=== PATIENT | female | born 1960 | race Caucasian/White ===

== ENCOUNTER 2019-10-29 07:19 | Outpatient (CLI) | payer OTHER, SELFPAY ==
--- NOTE | ~2019-10-29 | MM_ITS ---
EXAMINATION: MM screening [facility] BI w tobi HISTORY: Screening mammogram TECHNIQUE: Craniocaudal and mediolateral oblique 3-D tomosynthesis images were obtained and synthetic 2-D images were generated. CAD analysis was submitted and interpreted. COMPARISON: 10/25/2018, 09/07/2017, 07/18/2016 BREAST PARENCHYMAL COMPOSITION: The breasts are heterogeneously dense, which may obscure small masses . FINDINGS: RIGHT BREAST: An asymmetry is present in the middle/posterior third of the lower breast best apprecia richard 4 cm from the nipple on the mediolateral oblique view (MLO tomosynthesis image 8/51). LEFT BREAST: There is no evidence of suspicious mass, calcification, or architectural distortion to s uggest malignancy. There has been no significant interval change. IMPRESSION: 1. Right breast asymmetry on the mediolateral oblique view. 2. Additional mammographic views and possible breast ultrasound are recommended. BI-RADS Category 0: Incomplete: Needs additional imaging evaluation. Reviewed, dictated and finalized at location A. IMPRESSION: 1. Right breast asymmetry on the mediolateral oblique view. 2. Additional mammographic views and possible breast ultrasound are recommended . BI-RADS Category 0: Incomplete: Needs additional imaging evaluation.
== END 2019-10-29 07:20 | disposition home or self-care (01) ==
LOC: ANHIMG 07:20
PROVIDERS: PCP Internal Medicine; Visit Provider Obstetrics & Gynecology
DX: Z12.31 Encounter for screening mammogram for malignant neoplasm of breast (principal); R92.8 Other abnormal and inconclusive findings on diagnostic imaging of breast
CPT/HCPCS: 77063; 77067

== ENCOUNTER 2019-11-22 12:24 | Outpatient (CLI) | payer OTHER, SELFPAY ==
--- NOTE | ~2019-11-22 | MMUS_ITS ---
EXAMINATION: MM diagnostic mammo unilat RT, US breast RT limited HISTORY: Right breast asymmetry on screening mammogram TECHNIQUE: Additional 3-D tomosynthesis images of the right breast were performed and synthetic 2-D i mages were generated. CAD analysis was submitted and interpreted. High resolution limited right breas t ultrasound was performed. COMPARISON: 10/29/2019, 10/25/2018, 09/07/2017, 02/11/2016 FINDINGS: MAMMOGRAPHIC FINDINGS: No definite asymmetry persists with spot compression of the right breast. There are scattered benign calcifications. A subtle obscured 11 mm mass is seen in the subareolar aspect of the slightly outer b reast. ULTRASOUND: There are multiple circumscribed, hypoechoic, oval and round masses in the lower outer breast at the 7:00, 8:00, and 9:00 locations which do not demonstrate suspicious posterior features or internal vas cularity. In addition, there are two complicated cysts with internal debris adjacent to the nipple wh ich have decreased in size since prior ultrasound examinations. IMPRESSION: 1. Multiple similar appearing right breast masses, most consistent with complicated cysts. No mammogr aphic or sonographic evidence of malignancy. 2. Recommend routine screening mammography in one year. BI-RADS Category 2: Benign finding(s). Reviewed, dictated and finalized at location A. IMPRESSION: 1. Multiple similar appearing right breast masses, most consistent with complic ated cysts. No mammographic or sonographic evidence of malignancy. 2. Recommend routine screening mammography in one year. BI-RADS Category 2: Benign finding(s).
== END 2019-11-22 12:25 | disposition home or self-care (01) ==
LOC: ANHIMG 12:28
PROVIDERS: PCP Internal Medicine; Visit Provider Obstetrics & Gynecology
DX: R92.8 Other abnormal and inconclusive findings on diagnostic imaging of breast (principal)
CPT/HCPCS: 76642; 77065

== ENCOUNTER 2020-12-01 07:17 | Outpatient (CLI) | payer OTHER, SELFPAY ==
--- NOTE | ~2020-12-01 | MM_ITS ---
EXAMINATION: MM screening [facility] BI w tobi HISTORY: Screening TECHNIQUE: Craniocaudal and mediolateral oblique 3-D tomosynthesis images were obtained and synthetic 2-D images were generated. CAD analysis was submitted and interpreted. COMPARISON: Comparison to multiple prior studies sequentially, with oldest reviewed study dated 02/10. BREAST PARENCHYMAL COMPOSITION: The breasts are heterogeneously dense, which may obscure small masses . FINDINGS: There are stable benign-appearing bilateral breast calcifications. There is no evidence of suspicious mass, calcification, or architectural distortion to suggest malignancy in either breast. T here has been no suspicious interval change. IMPRESSION: 1. No mammographic evidence of malignancy. 2. Recommend routine screening mammography in one year. BI-RADS Category 2: Benign finding(s). Reviewed, dictated and finalized at location A.
== END 2020-12-01 07:18 | disposition home or self-care (01) ==
LOC: ANHIMG 07:25
PROVIDERS: PCP Internal Medicine; Visit Provider Obstetrics & Gynecology
DX: Z12.31 Encounter for screening mammogram for malignant neoplasm of breast (principal)
CPT/HCPCS: 77063; 77067

== ENCOUNTER 2022-01-25 07:47 | Outpatient (CLI) | payer OTHER, SELFPAY ==
--- NOTE | ~2022-01-25 | MM_ITS ---
EXAMINATION: MM screening [facility] BI w tobi HISTORY: Screening mammogram TECHNIQUE: Craniocaudal and mediolateral oblique 3-D tomosynthesis images were obtained and synthetic 2-D images were generated. CAD analysis was submitted and interpreted. COMPARISON: 12/01/2020 bilateral screening mammogram 11/22/2019 diagnostic right mammogram and limited right breast ultrasound 10/29/2019, 10/25/2018 bilateral screening mammogram examinations BREAST PARENCHYMAL COMPOSITION: The breasts are heterogeneously dense, which may obscure small masses . FINDINGS: Scattered benign calcifications are noted bilaterally. There is no evidence of suspicious m ass, calcification, or architectural distortion to suggest malignancy in either breast. There has bee n no suspicious interval change. IMPRESSION: 1. No mammographic evidence of malignancy. 2. Recommend routine screening mammography in one year. BI-RADS Category 2: Benign finding(s). Reviewed, dictated and finalized at location A.
== END 2022-01-25 07:48 | disposition home or self-care (01) ==
LOC: ANHIMG 07:48
PROVIDERS: PCP Internal Medicine; Visit Provider Obstetrics & Gynecology
DX: Z12.31 Encounter for screening mammogram for malignant neoplasm of breast (principal)
CPT/HCPCS: 77063; 77067

== ENCOUNTER 2022-04-13 15:07 | Outpatient (CLI) | payer OTHER, SELFPAY ==
--- NOTE | ~2022-04-13 | DEXA_ITS ---
Bone Density Report Name: VIKI VALADEZ Age: 61 Sex: Female Ethnicity: White Date of : 1960 Indication: postmenopausal; screening for osteoporosis; Referring Provider: SHIRLEY ROMAN Study: Bone densitometry was performed. Exam Date: April 13, 2022 Accession number: [id number] Bone Density: Region BMD T-score Z-score Classification AP Spine(L1-L4) 0.914 -1.2 0.2 Osteopenia Femoral Neck (Left) 0.741 -1.0 0.3 Normal Total Hip (Left) 0.934 -0.1 0.9 Normal Femoral Neck (Right) 0.791 -0.5 0.8 Normal Total Hip (Right) 0.929 -0.1 0.8 Normal Total Hip Mean 0.932 -0.1 0.9 Normal World Health Organization criteria for BMD impression classify patients as: Normal (T-score at or above -1.0), Osteopenia (T-score between -1.0 and -2.5), or Osteoporosis (T-score at or below -2.5). 10-year Fracture Risk(1): Major Osteoporotic Fracture 7.0% Hip Fracture 0.4% Reported Risk Factors: [place] (), Neck BMD=0.741, BMI=28.4 (1) FRAX(R) Version 3.08. Fracture probability calculated for an untreated patient. Fracture probability may be lower if the patient has received treatment. Clinical Information Provided by Patient: Patient maximum height was 60.5 Menopause Age: 55 Drinks caffeinated beverages Onset of menses at age 17 Number of children 2 Impression: The patient has low bone mass, based on the Total Spine T-score. The patient has an estimated ten-year risk of hip fracture of 0.4% and an estimated ten-year risk of major fracture of 7%, based on the WHO FRAX algorithm. Discussion: BONE DENSITY IS LOW AT ONE OR MORE SKELETAL SITES. This patient's lowest T-score is low at one or more skeletal sites. It meets the World Health Organization's (WHO) criteria for ?low bone mass? (T-score between -1.0 and -2.5). The patient's 10-year risk of fracture as calculated by FRAX is less than the threshold where pharmacological therapy is recommended by the National Osteoporosis Foundation (NOF). However, all treatment decisions require clinical judgment and consideration of individual patient factors, including patient preferences, comorbidities, previous drug use, risk factors not captured in the FRAX model (e.g., frailty, falls, vitamin D deficiency, increased bone turnover, interval significant decline in bone density) and possible under or overestimation of fracture risk by FRAX. The patient should follow a healthful lifestyle (good nutrition with adequate calcium and vitamin D, and appropriate weight-bearing exercise). Follow-Up: Consider repeating this study in 2 to 3 years to reassess this patient's status, or sooner if there is some new clinical indication. Reported by: [facility] on 04/13/2022 3:24:00 PM. Reviewed, dictated an
== END 2022-04-13 15:08 | disposition home or self-care (01) ==
PROVIDERS: PCP Internal Medicine; Visit Provider Obstetrics & Gynecology
DX: Z78.0 Asymptomatic menopausal state (principal); M85.88 Other specified disorders of bone density and structure, other site
CPT/HCPCS: 77080

== ENCOUNTER 2022-04-21 07:36 | Outpatient (CLI) | payer OTHER, SELFPAY ==
[2022-04-21 09:10] LABS: Vitamin D 25 Hydroxy 37.8 ng/mL
== END 2022-04-21 07:37 | disposition home or self-care (01) ==
LOC: ANHLAB 07:38
PROVIDERS: PCP Internal Medicine; Visit Provider Obstetrics & Gynecology
DX: M85.80 Other specified disorders of bone density and structure, unspecified site (principal)
CPT/HCPCS: 36415; 82306

== ENCOUNTER 2023-04-20 08:11 | Outpatient (CLI) | payer OTHER, SELFPAY ==
--- NOTE | ~2023-04-20 | MM_ITS ---
EXAMINATION: MM screening [facility] BI w tobi HISTORY: Screening mammogram TECHNIQUE: Craniocaudal and mediolateral oblique 3-D tomosynthesis images were obtained and synthetic 2-D images were generated. CAD analysis was submitted and interpreted. COMPARISON: 01/25/2022, 12/01/2020, 11/22/2019, 10/29/2019 BREAST PARENCHYMAL COMPOSITION: The breasts are heterogeneously dense, which may obscure small masses . FINDINGS: A stable mass in the anterior/middle third of the right breast is consistent with a benign finding. No suspicious mass, calcification, or architectural distortion are identified in either guru st to suggest malignancy. There has been no suspicious interval change. IMPRESSION: 1. No mammographic evidence of malignancy. 2. Recommend routine screening mammography in one year. BI-RADS Category 2: Benign finding(s). Reviewed, dictated and finalized at location A. 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
== END 2023-04-20 08:12 | disposition home or self-care (01) ==
PROVIDERS: PCP Nurse Practitioner Family; Visit Provider Obstetrics & Gynecology
DX: Z12.31 Encounter for screening mammogram for malignant neoplasm of breast (principal)
CPT/HCPCS: 77063; 77067

== ENCOUNTER 2023-05-19 08:02 | Emergency (ER) | payer OTHER, SELFPAY ==
--- NOTE | ~2023-05-19 | XR_ITS ---
Right foot Technique: AP, oblique, and lateral views were obtained. Clinical History: Pain Findings: No acute fracture or dislocation is seen. Osseous alignment is anatomic. Joint spaces are p reserved without erosive or degenerative change. Soft tissues are unremarkable. Impression: Unremarkable right foot radiographs. Reviewed, dictated and finalized at location . 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
--- NOTE | ~2023-05-19 | XR_ITS ---
Right ankle Technique: AP, oblique, and lateral views were obtained. Clinical History: Pain Findings: No acute fracture or dislocation is seen. Osseous alignment is anatomic. Ankle mortise and other visualized joint spaces are preserved. Soft tissues are otherwise unremarkable. Impression: Unremarkable right ankle. Reviewed, dictated and finalized at location . 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
--- NOTE | 2023-05-19 08:09 | ED.LOWEXIN ---
HPI - Extremity Injury (Lower) General Chief Complaint: Extremity Injury, Lower Stated Complaint: lower extremity injury Time Seen by Provider: 05/19/23 08:14 Source: patient Mode of arrival: ambulatory Limitations: no limitations History of Present Illness HPI Narrative: Mayuri is a 63-year-old female patient presenting to the clinic today with complaints of right foot and ankle pain. She reports she was walking on a on some steps this morning and inverted her foot causing pain to the lateral aspect of the foot that is radiating up into the ankle. Related Data Allergies Allergy/AdvReac Type Severity Reaction Status Date / Time sulfamethoxazole Allergy Mild Rash Verified 05/19/23 08:18 [From ] trimethoprim [From ] Allergy Mild Rash Verified 05/19/23 08:18 Review of Systems Review of Systems: Pertinent positives per HPI. Patient denies any fever, chills, rash, headache, visual changes, dizziness, cough, shortness of breath, chest pain, palpitations, nausea, vomiting, diarrhea, constipation, abdominal pain, or any urinary issues. [facility] Past Medical History Medical History Episode of gagging Memory loss, short term Syncope and collapse Surgical History Surgical History Hx of elbow surgery S/P endometrial ablation Total knee replacement status Family History Family History Father Family history of malignant neoplasm of thyroid, Onset Age: 77 Patient's father is Family history of malignant neoplasm Mother Family history of cardiac disorder Family history of Parkinson's disease Social History Social History Smoking status: Never smoker Second hand tobacco smoke exposure: No Alcohol intake: current Lack of Transportation: No Lack of Food: Never True Current Housing: I Have Housing Concerned About Future Housing: No Difficulty Paying Gas/Electric Bills: No Difficulty Paying for Meds: No Currently Unemployed: No Education: Bachelor's Degree Difficulty w/ Childcare or Family Care: No Comments At the time of my signature, I reviewed and agree with the nursing past medical, surgical, social, and family history. There is no relevant family history pertinent to the patient complaint. Exam Narrative: General: Well-developed, well nourished, in no apparent distress Head: Normocephalic, atraumatic. Cardio: Regular rate and rhythm, s1 and s2 normal, no murmur appreciated. Resp: Clear to auscultation bilaterally, no rhonchi, rales, wheezing or rubs. Musculoskeletal: No deformity, tender to palpation over the right lateral foot and ankle, pain with valgus varus testing of the foot, pain with dorsal flexion of the foot,, grossly normal range of motion, muscle strength strong and equal, peripheral pulse strong, no edema, no cyanosis, normal gait and station Course Course Emergency Course: Portions of this record may have been created with voice recognition software. Level of Care: Express Care Visit Vital Signs Vital signs: Vital signs reviewed MDM - Extremity Injury (Lower) MDM Narrative Medical decision making narrative: At the time of visit patient is resting comfortably on the exam table. Patient appears to be nontoxic. X-rays of the right foot and ankle were performed and were negative for any sign of fracture or malalignment.. Supportive measures were discussed with the patient and they voiced understanding discharge instructions and agrees to treatment plan. Return precautions reviewed Differential Diagnosis Differential diagnosis: Likely ankle sprain and strain and other (Foot fracture, foot sprain) Imaging Data Radiologist's impression: ITS Impressions Ankle X-Ray 05/19/23 08:31 Impression: Unremark
[2023-05-19 08:16] VITALS: BP 124/65; PULSE 96; RESP 16; TEMP 36.2; O2SAT 98
[2023-05-19 08:19] VITALS: BP 124/65; PULSE 96; RESP 98; TEMP 36.2; O2SAT 98
== END 2023-05-19 08:50 | disposition home or self-care (01) ==
PROVIDERS: Emergency Provider Nurse Practitioner Family; PCP Nurse Practitioner Family
DX: S93.411A Sprain of calcaneofibular ligament of right ankle, initial encounter (principal); S93.601A Unspecified sprain of right foot, initial encounter; X50.0XXA Overexertion from strenuous movement or load, initial encounter
CPT/HCPCS: 73610; 73630; 99213; G0463

== ENCOUNTER 2023-07-06 16:23 | Outpatient (CLI) | payer OTHER, SELFPAY ==
--- NOTE | ~2023-07-06 | US_ITS ---
EXAMINATION: US transvaginal DATE: 07/06/2023 17:42 INDICATION: Secondary dysmenorrhea. Back pain. TECHNIQUE: Multiple transabdominal and transvaginal sonographic images of the pelvis were obtained. COMPARISON: Ultrasound 07/16/2015 FINDINGS: TRANSABDOMINAL ULTRASOUND: The uterus measures 6.7 x 2.5 x 3.7 cm. There is no free fluid in the pelvis. TRANSVAGINAL ULTRASOUND: The endometrial complex measures 1 mm in thickness. There are hypoechoic masses in the cervix measuri ng up to 14 mm, likely hemorrhagic nabothian cysts. There is a 2.0 cm intramural fibroid. The right o vary measures 3.2 x 1.8 x 2.1 cm. There is a 1.9 cm cyst in right ovary, likely benign. The left ovar y is not visualized. IMPRESSION: 1. Uterine fibroid. 2. Hypoechoic masses in the cervix, likely hemorrhagic nabothian cysts. Reviewed, dictated and finalized at location E. 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
== END 2023-07-06 16:24 | disposition home or self-care (01) ==
PROVIDERS: PCP Nurse Practitioner Family; Visit Provider Obstetrics & Gynecology Gynecology
DX: N94.5 Secondary dysmenorrhea (principal); D25.1 Intramural leiomyoma of uterus; D26.0 Other benign neoplasm of cervix uteri; R11.0 Nausea
CPT/HCPCS: 76830

== ENCOUNTER 2023-12-19 16:03 | Outpatient (CLI) | payer OTHER, SELFPAY | END 2023-12-19 16:04 | disposition home or self-care (01) | LOC: ANHLAB 16:06 | PROVIDERS: PCP Nurse Practitioner Family; Visit Provider Obstetrics & Gynecology | DX: R10.2 Pelvic and perineal pain (principal); G89.29 Other chronic pain | CPT/HCPCS: 36415; 86850; 86900; 86901 ==

== ENCOUNTER 2023-12-23 08:37 | Observation (INO) | payer OTHER, SELFPAY ==
[2023-12-19 15:42] VITALS: BMI 29.8
--- NOTE | 2023-12-19 15:52 | PC.NURSE ---
Report to the Outpatient Waiting Room, entrance under the green pavilion located off [facility], at time _0600_ on date _[id number]_. Planned Procedure Time: _0730_. Time changes happen often and if your time is changed the preop area will call you the afternoon before. - You and your visitor will be asked to self-screen and do not enter if you have any COVID symptoms. - A mask is optional within the hospital at this time. Patients may have clear liquids (water, carbonated beverages, clear teas, apple juice) until 3 hours prior to surgery with a maximum of 20 ounces. - No food from midnight until time of surgery Take the following medications with a SIP of water the morning of surgery: ____Escitalopram DO NOT STOP ANY OF YOUR OTHER PRESCRIPTION MEDICATIONS PRIOR TO SURGERY ?EXCEPT THE FOLLOWING Medications to discontinue per physician All vitamins and supplements Date to take last dose____Stop now until after surgery. Please no make-up, nail greek, hairspray, perfume, deodorant, or body powder the day of surgery. No jewelry (including any body piercings) or valuables the day of surgery, leave them at home. Please take a shower or bath the night before, or the morning of, surgery with an antibacterial soap. Wear comfortable, loose fitting clothing. - Jewelry must be removed prior to entering the operating room. Rings and piercings that are not removed may be cut off. - The hospital will not accept responsibility for valuables. - Please leave all valuables, including medications, at home the day of surgery. If you are going home after surgery, a licensed cement truck driver must drive you home. - NO public transportation without another adult if you receive anesthesia. - We recommend that an adult stay with you for 24 hours following discharge. - We also recommend that you do not drive, make important decision, drink alcoholic beverages, or take any drugs that were not prescribed by your health care provider for at least 24 hours after your discharge time. Follow any additional instructions given to you from your surgeon. If you or anyone in your household have experienced Covid symptoms in the past week, please notify your surgeon or the nurse liaison at the phone number below for possible testing. Telephone instructions given to __Violete___and asked if any additional questions and then verbalized understanding. Patient advised to call surgeon office or pre surgery nurse liaison [phone] if any additional questions.
--- NOTE | 2023-12-21 14:16 | WPDANESEPPF ---
Anes - Initial Pre Proc Eval Procedure: Operation Date: 12/22/23 07:30 Proposed Procedures p Robotic Assisted Laparoscopic Total Vaginal Hysterectomy - Scott Tejeda MD Date/Time: 12/21/23 14:16 Surgeon: Scott Tejeda MD Pre Op Diagnosis: Chronic Pelvic Pain Patient Data Age: 63 Gender: F Height: 1.54 m Weight: 70.5 kg Allergies Allergy/AdvReac Type Severity Reaction Status Date / Time sulfamethoxazole Allergy Mild Rash Verified 12/22/23 06:43 [From ] trimethoprim [From ] Allergy Mild Rash Verified 12/22/23 06:43 morphine AdvReac Unknown Hypotension Verified 12/22/23 06:43 Home Medications Medication Instructions Recorded Confirmed Type escitalopram oxalate 5 mg tablet 5 mg PO DAILY #90 tabs 07/05/23 12/22/23 Rx (Lexapro) DHEA sr 1 tab-cap BYMOUTH DAILY 12/13/23 12/22/23 History cholecalciferol (vitamin D3) 125 125 mcg PO DAILY 12/13/23 12/22/23 History mcg (5,000 unit) tablet (Vitamin D3) coenzyme Q10 100 mg capsule (Co 100 mg PO DAILY 12/13/23 12/22/23 History Q-10) estrodiol 2.25 mg BYMOUTH DAILY 12/13/23 12/19/23 History mupirocin 2 % topical ointment 1 applic topical BID #15 grams 12/13/23 12/19/23 Rx progesterone 1 tab-cap BYMOUTH DAILY 12/13/23 12/22/23 History testosterone versase 1 applic topical DAILY 12/13/23 12/19/23 History thyroid 1 tab-cap BYMOUTH DAILY 12/13/23 12/22/23 History vitamin adk 1 tab-cap BYMOUTH DAILY 12/13/23 12/22/23 History scopolamine base 1 mg over 3 days 1 patch transdermal ONCE PRN 12/19/23 Rx transdermal patch motion sickness #1 ea Patient hx anesthesia problems: post op nausea/vomiting Family hx anesthesia problems: none Results Review: All pre-operative results and documents have been reviewed as part of the pre-operative evaluation. [facility] Past Medical History Medical History Episode of gagging Memory loss, short term Syncope and collapse Surgical History Surgical History Hx of elbow surgery S/P endometrial ablation Total knee replacement status Family History Family History Father Family history of malignant neoplasm of thyroid, Onset Age: 77 Patient's father is Family history of malignant neoplasm Mother Family history of cardiac disorder Family history of Parkinson's disease Social History Social History Smoking status: Never smoker Second hand tobacco smoke exposure: No Alcohol intake: current Drinks per week: 3 Substance use: never Do You Feel Safe in your Home?: Yes Lack of Transportation: No Lack of Food: Never True Current Housing: I Have Housing Concerned About Future Housing: No Difficulty Paying Gas/Electric Bills: No Difficulty Paying for Meds: No Currently Unemployed: No Education: Bachelor's Degree Difficulty w/ Childcare or Family Care: No Living arrangements: with family Occupation/Education: occupation Gender identity (if verbalized by the patient): Female Sexual Orientation (if Verbalized by the Patient): Straight or Heterosexual Spiritual care concerns: No Agree to blood products: Yes Anes - Eval Final PreProcedure Day of Procedure 12/21/23 14:16 Patient weight: normal Heart: regular rate and rhythm Lungs: clear to auscultation Airway: Mallampati scale class II Neurological: alert and oriented Last oral intake: >/= 8 hours ASA classification: II Emergent: no Anesthetic plan: proceed Anesthesia type and monitoring: general ETT and standard monitoring Results Review: All pre-operative results and documents have been reviewed as part of the pre-operative evaluation. Informed Consent: The patient's anesthetic plan and its attendant risks and benefits were discussed with the patient/family/POA. Qu
[2023-12-22] VITALS (17 sets, daily range): BP systolic 81–114; BP diastolic 42–70; PULSE 16–124; RESP 10–94; TEMP 36.2–36.8; O2SAT 92–100; BMI 28.7
[2023-12-22] MEDS: LACTATED RINGERS 1,000 ML 30 ML IV CONT ×2 (06:35→09:42)
[2023-12-22] MEDS: KETOROLAC 15 MG/ML VIAL (*BKC) IV PUSH (06:47)
[2023-12-22] MEDS: ACETAMINOPHEN 500 MG TABLET 1000 MG PO (06:47)
--- NOTE | 2023-12-22 07:07 | WPDHPUPDATE1 ---
History and Physical Update Update Date/Time: 12/22/23 07:07 History and Physical has been reviewed, including an updated exam of the patient. There are NO changes in the patient's condition. Risks, benefits, and alternatives have been discussed and questions answered. Patient agrees to proceed with procedure.
[2023-12-22] MEDS: ceFAZolin 2 GM/D5W 50 ML 2 GM/50 ML BAG IVPB (07:35)
[2023-12-22] MEDS: BUPivacaine HCL 0.5% 10 ML AMP 20 ML INFILTRATE (08:33)
--- NOTE | 2023-12-22 10:11 | P.OPB_ITS ---
Procedure Note - Brief Procedure Note - Brief Date of procedure: 12/22/23 Chronic Pelvic Pain Post-op diagnosis: Same Procedure performed: laparoscopic robotic assisted vaginal hysterectomy with bilateral salpingo- oophorectomy Surgeon: Scott Tejeda MD Anesthesia: GETA Findings: Normal uterus and ovaries and fallopian tubes, uterus with fibroid. Estimated blood loss (mL): 20 Drains: No Packing: No Pathology: Yes (uterus with cervix and right and left fallopian tubes and ovaries.) Complications: No immediate complications Disposition: PACU
--- NOTE | 2023-12-22 10:34 | SUR.PHASEI ---
1030: Simple mask removed.
--- NOTE | 2023-12-22 11:10 | ADMGEN ---
This patient, Mayuri Dave, was admitted to [facility] Surg Room 309-01 @ 1110. Patient/family oriented to hospital policies and general routines including ID bracelet, bed and alarms, visiting hours, pain management, procedures, bathroom and other care routines, personal items, smoking policy, room service/diet, and visiting hours. Information on how to activate the Rapid Response Team has been discussed. Patient/Family are encouraged to report perceived risks to care and to ask questions if they do not understand what they are told or what they should do.
[2023-12-22] MEDS: DEXTROSE 5%/0.45% SOD CHL 1,000 ML 125 ML IV CONT (13:16)
[2023-12-22] MEDS: SIMETHICONE 80 MG TAB.CHEW PO ×2 (13:16→16:52)
[2023-12-22] MEDS: HYDROcodone/acetaminophen (*CRX) 10-325 MG TABLET 1 TAB PO (14:11)
--- NOTE | 2023-12-22 14:16 | W.PM.PROC2 ---
Procedure Note - Detailed Date of Procedure 12/22/23 Pre-op Diagnosis Chronic Pelvic Pain Post-op Diagnosis Same Procedure Performed Laparoscopic robotic assisted total vaginal hysterectomy and bilateral salpingo-oophorectomy. Surgeon Scott Tejeda MD Top Knitter Dariusz Medina Anesthesia General Indications Patient with cyclic chronic pelvic pain desires definitive treatment. Findings Uterus normal size, ovaries atretic, possible intramural fibroid on right lateral uterus. Description of Procedure After informed consent was obtained she was taken to the operating room and general endotracheal anesthesia was administered. She was placed in low lithotomy position. An exam under anesthesia was performed. She was and prepped and draped in sterile fashion. [place] catheter placed in bladder. Attention was turned to the vagina speculum was inserted. Single-tooth tenaculum placed on anterior lip of the cervix the uterus sounded to 7 cm. The cervix was dilated to a 8 Mejia dilator. A size 6 uterine manipulator was inserted and secured. A size 3.0 colp cup was secured in the vagina. Then attention was turned to the abdomen with new sterile gloves. .5% marcaine injected subcutaneously. An incision was made horizontal 2 cm above the umbilicus. Veress needle inserted and confirmation into abdomen with normal flow of saline. Pneumoperitoneum obtained to 15mmhg. The 8mm robotic port was inserted using laparoscopy. Confirmation into abdomen obtained. She was placed in trendelenburg position. Attention was turned to right side of abdomen. A small incision was made approximately 6 cm lateral to the port on the left side of the port. A size 8mm robotic port was inserted under laparoscopic visualization into the abdomen on the left side. Attention was turned to the right side and 8mm port was inserted and superior and medial to this nurse assistant port inserted, both under laparoscopic visualization. .5% Marcaine injected subcutaneously before incisions. Robotic arms were secured. Attention was turned to surgery console. The right round ligament was ligated with vessel sealer. The anterior leaf of broad ligament dissected anteriorly. The right side of the bladder was dissected from the lower uterine segment and upper cervix. The right infundibular pelvicligament was ligated with the vessel sealer. The a posterior leaf of the broad ligament was further dissected. The ascending uterine vessels on the right were cauterized. The uterine vessels were ligated. Attention was turned to the left round ligament which was ligated and the anterior leaf of the broad ligament was dissected anteriorly. The rest of the vesicouterine peritoneum was dissected off of the uterus. Once the bladder was dissected below the colp cup then the posterior leaf of the broad ligament was further dissected. The left infundibular pelvic ligament was ligated. The ascending uterine vessels were ligated. The uterine arteries were ligated. The cardinal ligaments were ligated. This was done on both sides. An incision was made anterior colpotomy incision was made and this was carried around until the cervix was removed from the vagina. The uterus and cervix were removed through the vagina. The vaginal cuff was closed in a running fashion with 0 V lock suture x 2. Hemostasis was noted. The pelvis was irrigated. Hemostasis noted. Surgicil was applied in the pelvis. The patient was taken out of Trendelenburg position. The pneumoperitoneum was released and the ports were removed. Hemostasis was obtained at skin incisions. The skin incisions were closed with 4 O Vicryl and skin glue. The patient was extubated in operating room. The sponge count was correct x2. Patient tolerated procedure well and was taken to recovery in stable condition. Estimated Blood Loss 20 Drains No Packing No Pathology Yes (uterus with cervix and right and left fallopian tube) Complications No immediate complications Con
[2023-12-22] MEDS: SENNA/DOCUSATE SODIUM TABLET 2 TAB PO (21:01)
[2023-12-22] MEDS: HYDROcodone/acetaminophen (*CRX) 5-325 MG TABLET 1 TAB PO (21:01)
[2023-12-23 00:17] VITALS: BP 112/50; PULSE 70; RESP 14; TEMP 36; O2SAT 96
[2023-12-23] MEDS: HYDROcodone/acetaminophen (*CRX) 5-325 MG TABLET 1 TAB PO ×2 (04:09→10:23)
[2023-12-23 05:25] VITALS: BP 112/79; PULSE 75; RESP 14; TEMP 36.4; O2SAT 95
[2023-12-23 05:37] VITALS: BP 112/79; PULSE 75; RESP 14; TEMP 36.4; O2SAT 95
[2023-12-23] MEDS: SIMETHICONE 80 MG TAB.CHEW PO (07:54)
[2023-12-23] MEDS: ESCITALOPRAM OXALATE 5 MG TABLET PO (07:54)
--- NOTE | 2023-12-23 08:36 | PM.GYNPNOP ---
WHEEL BUFFER - A/P Assessment and plan (1) Status post hysterectomy: Code(s): Z90.710 - Acquired absence of both cervix and uterus Status: Acute Postoperative Procedures: Procedures Operation Date: 12/22/23 07:30 Actual Procedure Side Surgeon p Robotic Assisted Laparoscopic Total Vaginal Hysterectomy, Bilateral Salpingo-oophorectomy Bilateral Scott Tejeda MD Postoperative day: 1 Postoperative status: doing well Postoperative plan: routine post-op care and discharge Time Spent With Patient Time: Total time spent is greater than 50% in coordination of care (as documented) at patient's floor/unit and/or counseling patient: Time with patient: less than 15 minutes WHEEL BUFFER- PN:Subj Post-Op Subjective Date/time seen: 12/23/23 08:07 Interval history: POD#1 Mayuri reports doing well today. No issues overnight. Her pain is controlled with PO meds. She has tolerated regular diet. She denies any vaginal bleeding. She has voided. She has passed flatus. She has ambulated and denies any symptoms of anemia. Review of Systems Review of Systems: All systems reviewed & are unremarkable except as noted in HPI and below (HPI) Constitutional: Constitutional: Denies chills, Denies fever(s) and Denies headache(s) Eyes: Eyes: Denies change in vision ENT: Denies dizziness and Denies headache(s) Cardiovascular: Cardiovascular: Denies chest pain and Denies rapid heart rate Respiratory: Respiratory: Denies cough Genitourinary: Genitourinary: Denies abnormal vaginal bleeding Neurologic: Denies dizziness and Denies headache(s) Exam Const: General: cooperative, healthy appearing, comfortable and no acute distress Orientation/consciousness: patient oriented x3 Resp: Effort & Inspection: normal respiratory effort Auscultation: clear to auscultation bilaterally Cardio: Rate: regular rate GI: Inspection: normal to inspection and incision ( LSC incisions c/d/i) GI Palp: Yes abdominal tenderness (appropriate) and Yes Soft to palpation Auscultation: normal bowel sounds : Other: normal bleeding on pad Skin: General skin exam: normal color Neuro: General: patient oriented x3 Psych: Appearance: grossly normal Affect: normal affect Attitude: cooperative WHEEL BUFFER - PN: Obj Data Vital Signs Vital Signs: Vital Signs - 24 hr 12/22/23 06:00 12/22/23 09:42 12/22/23 09:55 Temperature 98.2 F 97.2 F L Pulse Rate 83 82 89 Respiratory Rate 16 10 L 14 Blood Pressure 103/63 90/42 L 101/53 L Pulse Oximetry 97 100 93 Oxygen Delivery Room Air Simple Face Mask Simple Face Mask Oxygen Flow Rate 12 12 12/22/23 10:10 12/22/23 10:23 12/22/23 10:25 Temperature Pulse Rate 83 124 H 108 H Respiratory Rate 12 16 16 Blood Pressure 93/56 L 101/62 111/65 Pulse Oximetry 100 100 100 Oxygen Delivery Simple Face Mask Simple Face Mask Simple Face Mask Oxygen Flow Rate 12 12 12 12/22/23 10:40 12/22/23 10:55 12/22/23 11:09 Temperature 98.0 F Pulse Rate 104 H 96 111 H Respiratory Rate 13 12 14 Blood Pressure 103/70 110/59 L 103/68 Pulse Oximetry 92 95 97 Oxygen Delivery Room Air Nasal Cannula Nasal Cannula Oxygen Flow Rate 2 2 12/22/23 11:36 12/22/23 11:51 12/22/23 12:21 Temperature 97.4 F L 97.4 F L 97.4 F L Pulse Rate 94 91 95 Respiratory Rate 16 16 16 Blood Pressure 114/57 L 103/57 L 102/54 L Pulse Oximetry 95 97 98 Oxygen Delivery Oxygen Flow Rate 12/22/23 11:30 12/22/23 14:00 12/22/23 13:21 Temperature 97.5 F L 97.5 F L Pulse Rate 93 96 Respiratory Rate 16 16 Blood Pressure 102/54 L 110/60 Pulse Oximetry 95 98 98 Oxygen Delivery Nasal Cannula Oxygen Flow Rate 2 12/22/23 17:57 Temperature 97.9 F Pulse Rate 78 Respiratory Rate 16 Blood Pressure 81/46 L Pulse Oximetry 98 Oxygen Delivery Oxygen Flow Rate Intake/Output Intake/Output: Intake & Output 12/19/23 12/20/23 12/21/23 12/22/23 23:59 23:59 23:59 23:59 Intake Total 1310 Output Total 2180 Balance
[2023-12-23 09:21] VITALS: BP 110/70; PULSE 65; RESP 20; TEMP 36.3; O2SAT 96
--- NOTE | 2023-12-23 10:36 | PM.DS ---
DS: Admitting Diagnosis Discharge Date 12/23/23 <Scott Tejeda MD - Last Filed: 01/12/24 12:42> Admitting Diagnosis Chronic pelvic pain <Scott Tejeda MD - Last Filed: 01/12/24 12:42> DS: Discharge Diagnosis Discharge Diagnosis (1) Status post hysterectomy: Code(s): Z90.710 - Acquired absence of both cervix and uterus <Scott Tejeda MD - Last Filed: 01/12/24 12:42> Status: Acute <Scott Tejeda MD - Last Filed: 01/12/24 12:42> DS: Summary Hospital Course Reason for hospitalization: Hysterectomy <Scott Tejeda MD - Last Filed: 01/12/24 12:42> Hospital Course: She was admitted hysterectomy. She had an uncomplicated hysterectomy/ BSO. She did well post op and was discharged to home on post op day 1. <Scott Tejeda MD - Last Filed: 01/12/24 12:42> Status at Discharge Functional status at discharge: independent ambulation <Scott Tejeda MD - Last Filed: 01/12/24 12:42> Overall status at discharge: patient is progressing back to baseline <Maria Alejandra Arango MD - Last Filed: 12/23/23 10:36> Time Spent with Patient Time attestation: Total time spent providing and/or coordinating discharge services: <Scott Tejeda MD - Last Filed: 01/12/24 12:42> Time spent: Less than 30 minutes <Maria Alejandra Arango MD - Last Filed: 12/23/23 10:36> Exam Const: General: cooperative, healthy appearing, comfortable and no acute distress <Maria Alejandra Arango MD - Last Filed: 12/23/23 10:36> Orientation/consciousness: patient oriented x3 <Maria Alejandra Arango MD - Last Filed: 12/23/23 10:36> Resp: Effort & Inspection: normal respiratory effort <Maria Alejandra Arango MD - Last Filed: 12/23/23 10:36> Auscultation: clear to auscultation bilaterally <Maria Alejandra Arango MD - Last Filed: 12/23/23 10:36> Cardio: Rate: regular rate <Maria Alejandra Arango MD - Last Filed: 12/23/23 10:36> GI: Inspection: normal to inspection and incision ( LSC incisions c/d/i) <Maria Alejandra Arango MD - Last Filed: 12/23/23 10:36> GI Palp: Yes abdominal tenderness (appropriate) and Yes Soft to palpation <Maria Alejandra Arango MD - Last Filed: 12/23/23 10:36> Auscultation: normal bowel sounds <Maria Alejandra Arango MD - Last Filed: 12/23/23 10:36> Skin: General skin exam: normal color <Maria Alejandra Arango MD - Last Filed: 12/23/23 10:36> Neuro: General: patient oriented x3 <Maria Alejandra Arango MD - Last Filed: 12/23/23 10:36> Psych: Appearance: grossly normal <Maria Alejandra Arango MD - Last Filed: 12/23/23 10:36> Affect: normal affect <Maria Alejandra Arango MD - Last Filed: 12/23/23 10:36> Attitude: cooperative <Maria Alejandra Arango MD - Last Filed: 12/23/23 10:36> DS: Data Data Completed and Pending Pending studies at discharge: Pending at discharge 12/22/23 09:00 Surgical [PTH] Routine <Scott Tejeda MD - Last Filed: 01/12/24 12:42> Discharge Plan Discharge Attending physician on discharge: Maria Alejandra Arango <Scott Tejeda MD - Last Filed: 01/12/24 12:42> Maria Alejandra Arango <Maria Alejandra Arango MD - Last Filed: 12/23/23 10:36> Consulting providers: Maria Alejandra Arango; Edwar Cluod <Scott Tejeda MD - Last Filed: 01/12/24 12:42> Discharging Clinician: Scott Tejeda <Scott Tejeda MD - Last Filed: 01/12/24 12:42> Scott Tejedaen N. Nba, MD - Last Filed: 12/23/23 10:36> Patient Disposition: Home, Self-Care <Scott Tejeda MD - Last Filed: 01/12/24 12:42> Activity: may shower and pelvic rest <Scott Tejeda MD - Last Filed: 01/12/24 12:42> may shower and pelvic rest <Maria Alejandra Arango MD - Last Filed: 12/23/23 10:36> Diet: regular <Scott Tejeda MD - Last Filed: 01/12/24 12:42> regular <Maria Alejandra Arango MD - Last Filed: 12/23/23 10:36> Discharge Instructions: - Nothing in the vagina for 6-8 weeks -- showers only. - No heavy l
== END 2023-12-23 10:43 | disposition home or self-care (01) ==
LOC: ANHSURGERY 08:45 → ANH3MEDSUR 08:45
PROVIDERS: Admitting Provider Obstetrics & Gynecology; PCP Nurse Practitioner Family; Visit Provider Obstetrics & Gynecology
PROC: (CPT 58552; principal; 2023-12-22 07:30)
DX: D25.2 Subserosal leiomyoma of uterus (principal); N72 Inflammatory disease of cervix uteri; N87.9 Dysplasia of cervix uteri, unspecified; N83.8 Other noninflammatory disorders of ovary, fallopian tube and broad ligament; N83.202 Unspecified ovarian cyst, left side; N83.201 Unspecified ovarian cyst, right side
CPT/HCPCS: 58552; S2900; 88307; A9270; G0378; J0690; J1100; J1170; J1200; J1885; J2250; J2405; J2704; J3010; J7030; J7120

== ENCOUNTER 2024-07-05 12:20 | Outpatient (CLI) | payer OTHER, SELFPAY ==
--- NOTE | ~2024-07-05 | MM_ITS ---
EXAMINATION: MM screening saray BI w tobi HISTORY: Screening TECHNIQUE: Craniocaudal and mediolateral oblique 3-D tomosynthesis images were obtained and synthetic 2-D images were generated. CAD analysis was submitted and interpreted. COMPARISON: Comparison to multiple prior studies sequentially, with oldest reviewed study dated 10/25. BREAST PARENCHYMAL COMPOSITION: Dense: The breasts are heterogeneously dense, which may obscure small masses FINDINGS: There is no evidence of suspicious mass, calcification, or architectural distortion to sugg est malignancy in either breast. There has been no suspicious interval change. IMPRESSION: 1. No mammographic evidence of malignancy. 2. Recommend routine screening mammography in one year. BI-RADS Category 1: Negative Reviewed, dictated and finalized at location L. NDS AND NURSERY SPECIALIST
--- OUTSIDE RECORDS SUMMARY | 2024-07-05 12:26 | XMS_ITS | Continuity of Care Document ---
Author Organization [facility] Address [address] [place] [address] [place] [address] Phone Care Team Providers Care Mountain Or Glacier Guide Name Role Phone Nikhil Roberson MD Unavailable Unavailable Allergies, Adverse Reactions, Alerts Substance Reaction Status Criticality trimethoprim Active No Information sulfamethoxazole Active No Informat ion Medications Medication Instructions Dosage Effective Dates (start - stop) Status Comments Lexapro 5 mg tablet take 3 tablet by ora l route every day 15 MG - Active Procedures Procedure Date PREV VISIT, NEW, AGE 40-64 PREV VISIT, EST, AGE 40-64 OFFICE/OUTPATIENT VISIT, EST Advance Directives Directive Yes / No Effective Date File Name No Information Encounters Encounter Description Practice Location Reason(s) For Visit Diagnoses Date Provider Providers Copied on Encounter PREV VISIT, NEW, AGE 40-64 [facility], [address] [place], [place], [id number], [place] tel:[phone] [facility] Physical (chief complaint) Encntr for general adult medical exam w/o abnormal findings [address], [address] [place], [place], [id number] , [place]. tel:[phone] Referring Provider: Nikhil Roberson, [address], [place], [place], [id number]. tel:[phone] PREV VISIT, EST, AGE 40-64 [facility], [address] [place], [place], [id number], [place] tel:[phone] [facility] Physical (chief complaint) Routine Medical ExamAbdominal PainHEMATURIA NOSRoutine Medical Exam [address], [place], [place], [id number] , [place]. tel:[phone] Family History Family Member Type Diagnosis Age At Onset Father Problem (finding) thymus gland CA Father Problem (finding) ALS Mother Problem (finding) parkinson Sister Problem (finding) Obesity Payers Payer name Insurance type Covered republican ID Authoriza tion(s) No Information Social History Type Description Quantity Date Captured Comments Alcohol Use Details Caffeine Use Details Unknown Tobacco Use Status Never smoked tobacco 2017 Smoking Status Never smoker Non-Smoking Tobacco Use Details : No Details Available : No Details Available Sex Female Vital Signs Date / Time: Height Weight BMI Pulse Rate Blood Pressure Temperature Respiratory Rate Body Surface Area Head Circumference BMI percentile Pulse Ox Inhaled Ox 1:41 PM 154.94 cm 141.80 lbs 26.7 9 kg/m eter (2) 73 /min 116/73 mm[Hg] 97.6 F 16 /min Chief Complaint And Reason For Visit From encounter dated '05/30/2017 11:30'. Physical (chief complaint). Description: Pt needs annual physical. Pt has chronic anxiety and depression. Pt takes lexapro 15 mg daily and doing ok. Pt has right knee pain and she has meniscuar tear and she will have laproscopic meniscus repair. pt was told she needs EKG before she can have the procedure. Pt denies any other complaints. Pt denies any chest pain, sob, any histor yof adverse reaction with surgeyr or anesthesia. Plan Of Treatment Date Type Action Status Referral Ordered: ELECTROCARDIOGRAM, COMPLETE ordered Referral Ordered: US, PELVIC (NONOBSTETRIC); ordered Referral Ordered: CT ABD & PELVIS W/O CONTRAST ordered History Of Present Illness Encounter Date Complaint History Of Prese nt Illness Physical Pt needs annual physical. Pt has chronic anxiety and depression. Pt takes lexapro 15 mg daily and doing ok. Pt has right knee pain and she has meniscuar tear and she will have laproscopic meniscus repair. pt was told she needs EKG before she can have the procedure. Pt denies any other complaints. Pt denies any chest pain, sob, any histor yof adverse reaction with surgeyr or anesthesia. Instructions Date Instruction Additional Infor mation Prescribed Activity and Exercise Education Related to Dietary Surveillance and Counseling Prescribed Diet Educ ation/Lifestyle Education Regarding Diet Related to Dietary Surveillance and Counseling Increase physical activity Relat ed to Encntr for general adult medical exam w/o abnormal findings Assessments Type Assessment Date assessment Encntr for general adult medical exam w/o abnormal findings Mental Status Date Cognitive Assessment Orientation - [place] ed to time, place, person, situation.
--- OUTSIDE RECORDS SUMMARY | 2024-07-05 12:28 | XMS_ITS | Clinical Summary ---
Author Organization [facility] [address] Address [address] [place] [address] Care Team Providers Care Senior Linux Administrator Name Role Phone Lennox Canada Primary Care Provider Allergies Active Allergy Reactions Criticality Noted Date Comments Sulfamethoxazole-Trimethoprim Active Problems Problem Noted Date Diagnosed Date Lentigo 06/17/2013 Social History Tobacco Use Types Packs/Day Years Used Date Smoking Tobacco: Never Personal Safety Answer Date Recorded Getting School Help Needed Not on file 07/28 Comments Unknown Sex and Gender Information Value Date Recorded Sex Assigned at Not on file Legal Sex Female 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 Gender Identity Not on file Sexual Orientation Not on file Obstetrics History Last Filed Vital Signs Vital Sign Reading Time Taken Comments Blood Pressure - - Pulse - - Temperature - - Respiratory Rate - - Oxygen Saturation - - Inhaled Oxygen Concentration - - Weight 61.7 kg (136 lb) 06/12/2018 8:14 AM SALVAGE INSPECTOR Height 152.4 cm (5') 06/12/2018 8:14 AM SALVAGE INSPECTOR Body Mass Index 26.56 06/12/2018 8:14 AM SALVAGE INSPECTOR Plan of Treatment Not on file Insurance [facility] CHOICE PLUS Care Teams Senior Linux Administrator Relationship Specialty Start Date End Date Lennox Canada DO PCP - General Internal Medicine 06/11/18
--- OUTSIDE RECORDS SUMMARY | 2024-07-05 12:28 | XMS_ITS | Referral Summary ---
Author Organization [facility] [place] [place] [address] Address [address] [place] [address] Care Team Providers Care Ip Technology Transactions Attorney Name Role Phone Lennox Canada Primary Care Provider [phone] Allergies Active Allergy Reactions Criticality Noted Date Comments Sulfamethoxazole-Trimethoprim Active Problems Problem Noted Date Diagnosed Date Lentigo 06/17/2013 Social History Tobacco Use Types Packs/Day Years Used Date Smoking Tobacco: Never Personal Safety Answer Date Recorded Getting School Help Needed Not on file 07/28 Comments Unknown Sex and Gender Information Value Date Recorded Sex Assigned at Not on file Legal Sex Female 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 Gender Identity Not on file Sexual Orientation Not on file Last Filed Vital Signs Vital Sign Reading Time Taken Comments Blood Pressure - - Pulse - - Temperature - - Respiratory Rate - - Oxygen Saturation - - Inhaled Oxygen Concentration - - Weight 61.7 kg (136 lb) 06/12/2018 8:14 AM TENNIS 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 Height 152.4 cm (5') 06/12/2018 8:14 AM TENNIS 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 Body Mass Index 26.56 06/12/2018 8:14 AM TENNIS 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 Plan of Treatment Not on file Insurance [facility] CHOICE PLUS [facility] HMO/PPO Address: [facility] [address] [place] [address] Care Teams Ip Technology Transactions Attorney Relationship Specialty Start Date End Date Lennox Canada DO PCP - General Internal Medicine 06/11/18
== END 2024-07-05 12:21 | disposition home or self-care (01) ==
LOC: ANHIMG 12:25
PROVIDERS: PCP Nurse Practitioner Family; Visit Provider Obstetrics & Gynecology
DX: Z12.31 Encounter for screening mammogram for malignant neoplasm of breast (principal)
CPT/HCPCS: 77063; 77067

== ENCOUNTER 2024-09-20 06:56 | Outpatient (CLI) | payer OTHER, SELFPAY ==
--- NOTE | ~2024-09-20 | XR_ITS ---
Right Hand Technique: PA, oblique, and lateral views were obtained. Clinical History: Pain Findings: No acute fracture or dislocation is seen. Osseous alignment is anatomic. Joint spaces are p reserved. Soft tissues are unremarkable. Impression: Unremarkable right hand. Reviewed, dictated and finalized at location M. Impression: Unremarkable right hand.
--- OUTSIDE RECORDS SUMMARY | 2024-09-20 06:58 | XMS_ITS | Continuity of Care Document ---
Author Organization [facility] Address [address] [place] [address] Phone Care Team Providers Care Implementation Services Analyst Name Role Phone More PT,MPT,ATC, Simón Unavailable Unavai lable Procedures Procedure Date Therapeutic Exercise Neuromuscular Re-Ed Therapeutic Exercise Neuromuscular Re-Ed Manual Therapy Therapeutic Exercise Neuromuscular Re-Ed Manual Therapy Therapeutic Exercise Neuromuscular Re-Ed Manual Therapy Therapeutic Exercise Manual Therapy Therapeutic Exercise Neuromuscular Re-Ed Therapeutic Exercise Neuromuscular Re-Ed Manual Therapy Therapeutic Exercise Neuromuscular Re-Ed Manual Therapy Progress Note Therapeutic Exercise Neuromuscular Re-Ed Manual Therapy Therapeutic Exercise Neuromuscular Re-Ed Manual Therapy Therapeutic Exercise Neuromuscular Re-Ed Therapeutic Exercise Neuromuscular Re-Ed Manual Therapy Therapeutic Exercise Neuromuscular Re-Ed Manual Therapy PT Evaluation Moderate Complexity Therapeutic Exercise Neuromuscular Re-Ed Advance Directives Directive Yes / No Effective Date File Name No Information Encounters Encounter Description Practice Location Reason(s) For Visit Diagnoses Date Provider Providers Copied on Encounter [address], [place], [place], [id number], tel:[phone] [place] No Information [address] [place]. Referring Provider: Zaki Jeffries, [address] [place] [address] [address], [place], [address]. tel:[phone], [place], [place], [id number], [place] tel:[phone] [place] No Information [address] [place]. Referring Provider: Zaki Jeffries, [address] [place] [address] [address], [place], [address]. tel:[phone], [place], [place], [id number], [place] tel:[phone] [place] No Information [address] [place]. Referring Provider: Zaki Jeffries, [address] [facility] [address], [place], [address]. tel:[phone], [place], [place], [id number], tel:[phone] [place] No Information [address] [place]. Referring Provider: Zaki Jeffries, [address] [facility] [address], [place], [address]. tel:[phone], [place], [place], [address], [place] tel:[phone] [place] No Information 0 [facility] [place] Referring Provider: Zaki Jeffries [address] [facility] [address], [place], [address]. tel:[phone] [place] [address] [facility] [address], [place], [place], [id number], [place] tel:[phone] [place] No Information 0 - 7 More Simón. , [place], [place]. Referring Provider: Zaki Jeffries, [address] [place] [address] [address], [place], [address]. tel:[phone] [facility] [address] [facility], [place], [place], [id number], [place] tel:[phone] [place] No Information Nov-0 3- 7 N[place] My[place]. . Referring Provider: Zaki Jeffries, [address] [place] [address] [address], [place], [address]. tel:[phone] [facility], [address], [place], [place], [address], [place] tel:[phone] [place] No Information 3 7 More Simón. , [place], [place]. Referring Provider: Zaki Jeffries, [address] [place] [address] [address], [place], [address]. tel:[phone] [facility], [address] [facility] [address], [place], [place], [id number], [place] tel:[phone] [place] No Information Feb-2 7 More Simón. [place], [place], [place]. Referring Provider: Zaki Jeffries [address] [place] [address] [address], [place], [address]. tel:[phone] [facility] [facility] [address], [place], [place], [id number], [place] tel:[phone] [place] No Information Feb-2 7 More Simón. , [place], [place]. Referring Provider: Zaki Jeffries [address] [place] [address] [address], [place], [address]. tel:[phone] [facility] [facility], [place], [place], [address], [place] tel:[phone] [place] No Information Feb-2 0- 7 [facility]. Referring Provider: Zaki Jeffries, [address] [facility] [address], [place], [address]. tel:[phone] [place] [address], [place], [place], [address], tel:[phone] [place] Oth fracture of l low leg, subs for clos fx w routn healPain in right knee 7 [place], . Referring Provider: Zaki Jeffries, [address] [facility] [address], [place], [address]. tel:[phone] [place] [address], [place], [place], [address], tel:[phone] [place] No Information 7 [facility]. Referring Provider: Zaki Jeffries [address] [place] [address], [place], [address]. tel:[phone] [place] [address], [place], [place], [address], tel:[phone] [place] No Information 7 [facility]. Referring Provider: Zaki Jeffries, [address] [facility] [address], [place], [address]. tel:[phone] Family History Family Member Type Diagnosis Age At Onset No Information Payers Payer name Insurance type Covered green party ID Susan san(s) [facility] CI [id number] Social History Type Description Quantity Date Captured Comments Sex Female Smoking Status No Information Chief Complaint And Reason For Visit No Information Reason For Referral Reason For Referral No Information History Of Present Illness Encounter Date Complaint History Of Prese nt Illness No Information Functional Status Date Functional Assessmen t No Information Instructions Date Instruction Additional Infor mation No Information Assessments Type Assessment Date No Information Patient Care Teams Name Effective Dates (start - stop) Status Members No Information
--- OUTSIDE RECORDS SUMMARY | 2024-09-20 06:58 | XMS_ITS | Referral Summary ---
Author Organization [facility] [address] Address [address] [place] [address] Care Team Providers Care Box Cutter Name Role Phone Lennox Canada Primary Care Provider [phone] Allergies Active Allergy Reactions Criticality Noted Date Comments Sulfamethoxazole-Trimethoprim Active Problems Problem Noted Date Diagnosed Date Lentigo 06/17/2013 Social History Tobacco Use Types Packs/Day Years Used Date Smoking Tobacco: Never Personal Safety Answer Date Recorded Getting School Help Needed Not on file 07/28 Comments Unknown Sex and Gender Information Value Date Recorded Sex Assigned at Not on file Legal Sex Female 7:09 PM ROLFER Gender Identity Not on file Sexual Orientation Not on file Last Filed Vital Signs Vital Sign Reading Time Taken Comments Blood Pressure - - Pulse - - Temperature - - Respiratory Rate - - Oxygen Saturation - - Inhaled Oxygen Concentration - - Weight 61.7 kg (136 lb) 06/12/2018 8:14 AM ROLFER Height 152.4 cm (5') 06/12/2018 8:14 AM ROLFER Body Mass Index 26.56 06/12/2018 8:14 AM ROLFER Plan of Treatment Not on file Insurance [facility] CHOICE [facility] H[facility]/PPO Address: [facility] [address] [place] [address] Care Teams Box Cutter Relationship Specialty Start Date End Date Lennox Canada DO PCP - General Internal Medicine 06/11/18
--- OUTSIDE RECORDS SUMMARY | 2024-09-20 06:58 | XMS_ITS | Clinical Summary ---
Author Organization [facility] [address] Address [address] [place] [address] Care Team Providers Care Spline Rolling Machine Job Setter Name Role Phone Lennox Canada Primary Care Provider [phone] Allergies Active Allergy Reactions Criticality Noted Date Comments Sulfamethoxazole-Trimethoprim Active Problems Problem Noted Date Diagnosed Date Lentigo 06/17/2013 Social History Tobacco Use Types Packs/Day Years Used Date Smoking Tobacco: Never Personal Safety Answer Date Recorded Getting School Help Needed Not on file 07/28 Comments Unknown Sex and Gender Information Value Date Recorded Sex Assigned at Not on file Legal Sex Female 7:[address] Gender Identity Not on file Sexual Orientation Not on file Obstetrics History Last Filed Vital Signs Vital Sign Reading Time Taken Comments Blood Pressure - - Pulse - - Temperature - - Respiratory Rate - - Oxygen Saturation - - Inhaled Oxygen Concentration - - Weight 61.7 kg (136 lb) 06/12/2018 8:[address] Height 152.4 cm (5') 06/12/2018 8:[address] JUDGE Body Mass Index 26.56 06/12/2018 8:[address] JUDGE Plan of Treatment Not on file Insurance [facility] CHOICE PLUS Care Teams Spline Rolling Machine Job Setter Relationship Specialty Start Date End Date Lennox Canada DO PCP - General Internal Medicine 06/11/18
--- OUTSIDE RECORDS SUMMARY | 2024-09-20 06:58 | XMS_ITS | Continuity of Care Document ---
Author Organization [facility] Address [address] [place] [address] [place] [address] Phone Care Team Providers Care Bilingual Hr Generalist Name Role Phone Nikhil Roberson MD Unavailable [...] on Encounter PREV VISIT, NEW, AGE 40-66 [facility], [address] [place], [id number], [place] tel:[phone] [facility] Physical (chief complaint) Encntr for general adult medical exam w/o abnormal findings [address], [address] [place], [address] , [place]. tel:[phone] Referring Provider: Nikhil Roberson, [address], [place], [place], [address]. tel:[phone] PREV VISIT, EST, AGE 40-66 [facility], [address] [place], [id number], [place] tel:[phone] [facility] Physical (chief complaint) Routine Medical ExamAbdominal PainHEMATURIA NOSRoutine Medical Exam [address], [place], [place], [address] , [place]. tel:[phone] Family History Family Member Type Diagnosis Age At Onset Father Problem (finding) thymus gland CA Father Problem (finding) ALS Mother Problem (finding) parkinson Sister Problem (finding) Obesity Payers Payer name Insurance type Covered democrat ID Authoriza tion(s) No Information Social History [...] Mental Status Date Cognitive Assessment Orientation - [place] ed to time, place, person, situation.
== END 2024-09-20 06:57 | disposition home or self-care (01) ==
PROVIDERS: PCP Nurse Practitioner Family; Visit Provider Nurse Practitioner Family
DX: M79.641 Pain in right hand (principal)
CPT/HCPCS: 73130

== ENCOUNTER 2025-01-10 19:09 | Emergency (ER) | payer OTHER, SELFPAY ==
[2025-01-10 19:25] VITALS: BP 99/71; PULSE 101; RESP 16; TEMP 36.7; O2SAT 98
--- NOTE | 2025-01-10 19:29 | ED_ITS ---
HPI - Skin/Abscess/Foreign Bdy General Chief complaint: Skin/Abscess/Foreign Body Stated complaint: HIVES Time Seen by Provider: 01/10/25 19:29 Source: patient Mode of arrival: ambulatory Limitations: no limitations History of Present Illness HPI narrative: 64-year-old female presents with complaint of hives starting this morning. Started to trunk, now spreading to right arm. Complaining of itching. Has not taking any [id number]-yjedelh Medications to treat symptoms. All systems reviewed and negative except as noted above. Related Data Home Medications ?Medication ?Instructions ?Recorded ?Confirmed ?Last Taken ?Type cholecalciferol (vitamin D3) 125 125 mcg PO DAILY 11/1412/12/24 12/19/23 History mcg (5,000 unit) tablet (Vitamin D3) coenzyme Q10 100 mg capsule (Co 100 mg PO DAILY 12/12/24 12/19/23 History Q-10) estrodiol 2.25 mg BYMOUTH DAILY 12/12/24 12/06/23 History progesterone 1 tab-cap BYMOUTH DAILY 11/1412/12/24 12/19/23 History testosterone versase 1 applic topical DAILY 12/1212/12/24 Unknown History thyroid 1 tab-cap BYMOUTH DAILY 11/1412/12/24 12/19/23 History vitamin adk 1 tab-cap BYMOUTH DAILY 11/1412/12/24 12/19/23 History Allergies Allergy/AdvReac Type Severity Reaction Status Date / Time diclofenac (From Voltaren) Allergy Intermediate Rash Verified 12/12/24 08:08 sulfamethoxazole (From Allergy Mild Rash Verified 12/12/24 07:29 Septra) trimethoprim (From Septra) Allergy Mild Rash Verified 12/12/24 07:29 morphine AdvReac Unknown Hypotension Verified 12/12/24 07:29 [facility] Past Medical History Medical History Syncope and collapse Memory loss, short term Episode of gagging Surgical History Surgical History S/P endometrial ablation Hx of elbow surgery Total knee replacement status Family History Family History (Reviewed 09/17/24 @ 07:28 by Maria Del Carmen Mahajan [facility]) Father Family history of malignant neoplasm of thyroid, Onset Age: 77 Patient's father is Family history of malignant neoplasm Mother Family history of cardiac disorder Family history of Parkinson's disease Social History Social History (Reviewed 09/17/24 @ 07:28 by Maria Del Carmen Mahajan [facility]) Smoking status: Never smoker Second hand tobacco smoke exposure: No Alcohol intake: current Drinks per week: 3 Substance use: never Substance use type: does not use Do You Feel Safe in your Home?: Yes Lack of Transportation: No Lack of Food: Never True Current Housing: I Have Housing Concerned About Future Housing: No Difficulty Paying Gas/Electric Bills: No Difficulty Paying for Meds: No Currently Unemployed: No Education: Bachelor's Degree Difficulty w/ Childcare or Family Care: No Living arrangements: with family Occupation/Education: occupation Gender identity (if verbalized by the patient): Female Sexual Orientation (if Verbalized by the Patient): Straight or Heterosexual Spiritual care concerns: No Agree to blood products: Yes Comments At time of signature, agree with nursing past medical, surgical, social and family history. There is no relevant family history pertinent to the presenting complaint. Exam Narrative: GENERAL: This is a well-nourished, well-developed patient, in no apparent distress. HEAD: normocephalic, atraumatic. EYES: PERRL. Sclera clear/white. Vision is grossly intact. EARS: External ears normal NOSE: External nose normal NECK: Neck supple, non-tender without lymphadenopathy, masses or thyromegaly. CARDIOVASCULAR: Regular rate and rhythm without murmurs, gallops, or rubs. RESPIRATORY: Clear to auscultation. Breath sounds equal bilaterally. No wheezes, rales, or rhonchi. SKIN: warm, Dry, intact with good texture and turgor. Erythematous hives to waist, right forearm. Patient actively scratching at hives in exam room. NEURO: awake, alert, and oriented to person, place and time. There were no obvious focal neurologic abnormalities. EXTREMITIES: No joint tenderness, effusion, or edema noted. Course Course Level of Care: Express Care Visit Vital Signs Vital signs: Vital Signs Temperature 36.7 C 01/10/25 19:25 Pulse Rate 101 H 01/10/25 19:25 Respiratory Rate 16 01/10/25 19:25 Blood Pressure 99/71 L 01/10/25 19:25 Pulse Oximetry 98 01/10/25 19:25 Temperature 36.7 C 01/10/25 19:25 Pulse Rate 101 H 01/10/25 19:25 Respiratory Rate 16 01/10/25 19:25 Blood Pressure 99/71 L 01/10/25 19:25 Pulse Oximetry 98 01/10/25 19:25 Reviewed MDM - Skin/Abscess/Foreign Bdy MDM Narrative Medical decision making narrative: Patient denies use of any new products, clothing. Patient does states that she has been stressed with a family situation. Will treat hives with prednisone. Patient is well-appearing, nontoxic. Differential Diagnosis Differential diagnosis: Likely urticaria, allergic reaction to drug, eczema, insect bites and contact dermatitis Discharge Plan Discharge Clinical Impression: Acute urticaria Patient Disposition: Home Condition: Stable Instructions: Urticaria (ED) Additional Instructions: Take prednisone as prescribed. Start prednisone prescription tomorrow morning. May taking antihistamine daily such as Claritin or Zyrtec to treat itching. Follow-up primary care physician if not improving. Patient Language: Citizen Of [place] Prescriptions: New prednisone 20 mg tablet See Rx Instructions .ROUTE .COMPLEX Qty: 8 0RF Rx Instructions: Take 2 tablets daily for 2 days then 1 tablet daily for 4 days. No Action coenzyme Q10 [Co Q-10] 100 mg capsule 100 mg PO DAILY cholecalciferol (vitamin D3) [Vitamin D3] 125 mcg (5,000 unit) tablet 125 mcg PO DAILY estrodiol 2.25 mg BYMOUTH DAILY vitamin adk capsule 1 tab-cap BYMOUTH DAILY progesterone capsule 1 tab-cap BYMOUTH DAILY testosterone versase cream 1 applic topical DAILY thyroid capsule 1 tab-cap BYMOUTH DAILY escitalopram oxalate [Lexapro] 5 mg tablet 5 mg PO DAILY Qty: 90 3RF Rx Instructions: Take 15 mg daily escitalopram oxalate 10 mg tablet 10 mg PO DAILY Qty: 90 3RF Rx Instructions: Take 15 mg daily Follow-up/Referrals: Kathy Jimenez APRN [Primary Care Provider, Internal Medicine] Time of Disposition: 19:39
== END 2025-01-10 19:49 | disposition home or self-care (01) ==
PROVIDERS: Emergency Provider Nurse Practitioner Family; PCP Nurse Practitioner Family
DX: L50.9 Urticaria, unspecified (principal)
CPT/HCPCS: 99213; G0463; J7512

== ENCOUNTER 2025-01-20 07:44 | Outpatient (CLI) | payer OTHER, SELFPAY ==
--- NOTE | ~2025-01-20 | DEXA_ITS ---
Bone Density Report Name: VIKI VALADEZ Age: 64 Sex: Female Ethnicity: White Date of : 1960 Indication: postmenopausal; screening for osteoporosis; hysterectomy; Referring Provider: SHIRLEY ROMAN Study: Bone densitometry was performed. Exam Date: January 20, 2025 Accession number: [id number] Bone Density: Region BMD T-score Z-score Classification AP Spine(L1-L4) 0.977 -0.6 1.0 Normal Femoral Neck (Left) 0.809 -0.4 1.0 Normal Total Hip (Left) 0.996 0.4 1.5 Normal Femoral Neck (Right) 0.819 -0.3 1.1 Normal Total Hip (Right) 0.959 0.1 1.2 Normal Total Hip Mean 0.978 0.3 1.4 Normal World Health Organization criteria for BMD impression classify patients as: Normal (T-score at or above -1.0), Osteopenia (T-score between -1.0 and -2.5), or Osteoporosis (T-score at or below -2.5). 10-year Fracture Risk: FRAX not reported because: All T-scores for Spine Total, Hip Total, Femoral Neck at or above -1.0 Clinical Information Provided by Patient: Has used the following medications: Vitamin D Has the following medical conditions: Hysterectomy Patient maximum height was 60.5 Menopause Age: 55 Drinks caffeinated beverages Onset of menses at age 17 Number of children 2 Impression: The patient has normal bone mass. Discussion: BONE DENSITY IS ABOVE THE MINIMUM DESIRABLE LEVEL AT ALL SKELETAL SITES TESTED. This patient?s bone mineral density is above the minimum desirable level (T-score -1.0 or better) at all sites measured. The patient should follow a healthful lifestyle (good nutrition with adequate calcium and vitamin D, and appropriate weight-bearing exercise). Follow-Up: Consider repeating this study in 5 years or sooner if there is some new clinical indication. Reported by: AMBER on 01/20/2025 11:04:00 AM. Reviewed, dictated and finalized at location A.
--- OUTSIDE RECORDS SUMMARY | 2025-01-20 07:51 | XMS_ITS | Clinical Summary ---
Author Organization [facility] [address] Address [address] [place] [address] Care Team Providers Care Phlebotomy Instructor Name Role Phone Lennox Canada Primary Care Provider [phone] Allergies Active Allergy Reactions Criticality Noted Date Comments Sulfamethoxazole-Trimethoprim Active Problems Problem Noted Date Diagnosed Date Lentigo 06/17/2013 Social History Tobacco Use Types Packs/Day Years Used Date Smoking Tobacco: Never Personal Safety Answer Date Recorded Getting School Help Needed Not on file 07/28 Comments Unknown Sex and Gender Information Value Date Recorded Sex Assigned at Not on file Legal Sex Female 7:09 PM PRODUCTION TESTER Gender Identity Not on file Sexual Orientation Not on file Obstetrics History Last Filed Vital Signs Vital Sign Reading Time Taken Comments Blood Pressure - - Pulse - - Temperature - - Respiratory Rate - - Oxygen Saturation - - Inhaled Oxygen Concentration - - Weight 61.7 kg (136 lb) 06/12/2018 8:14 AM PRODUCTION TESTER Height 152.4 cm (5') 06/12/2018 8:14 AM PRODUCTION TESTER Body Mass Index 26.56 06/12/2018 8:14 AM PRODUCTION TESTER Plan of Treatment Not on file Insurance [facility] CHOICE PLUS Care Teams Phlebotomy Instructor Relationship Specialty Start Date End Date Lennox Canada DO PCP - General Internal Medicine 06/11/18
== END 2025-01-20 07:45 | disposition home or self-care (01) ==
PROVIDERS: PCP Nurse Practitioner Family; Visit Provider Obstetrics & Gynecology
DX: Z78.0 Asymptomatic menopausal state (principal)
CPT/HCPCS: 77080